=== PATIENT | female | born 2000 | race Caucasian/White ===

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

== ENCOUNTER 2018-05-13 18:08 | Emergency (ER) | payer BC ==
[2018-05-13] MEDS ORDERED: D10W 500 ML IV ONE (18:15)
--- NOTE | 2018-05-13 18:20 | EDPHY ---
H & P Stated Complaint: head hematoma, sz, low BLG Time Seen by Provider: 05/13/18 18:17 HPI/ROS: HPI: This is a 17-year-old female who presents with Chief Complaint: Hypoglycemia, seizure like activity Location: body Quality: Hypoglycemia Duration: Prior to arrival Signs and Symptoms: no fever, no nausea, no vomiting, no photophobia, no noise sensitivity, no neck stiffness, no ear pain, no tinnitus, no nasal congestion, no sinus pressure, no weakness, no radiation, no aura Timing: Acute Severity: [id number] Context: Patient has a history type 1 insulin-dependent diabetes mellitus, takes Lantus and Humalog, arrives via EMS with complaints of witnessed syncopal episode in the alley way between the apartment building. Patient was caring her laundry across the street. She reports that last thing she remembers is feeling lightheaded and dizzy in the alley way. She also noted that laundry basket was extremely heavy and she was exerting"a lot of energy." Patient reports that she has not ate or drank anything today but did take her Lantus this morning. Patient reports that the last time she had a hypoglycemic episode was when she did eat or drink anything approximately 1 year ago. Denies tongue laceration, incontinence, fever, vomiting. She does report some pain over the area of the hematoma where she hit her head on the asphalt. She also has some nausea. Prior history of 1 concussion that was mild in nature per patient in the past. No prior history of seizure activity. Bystanders now at bedside reports that she did not have seizure like activity. They report" she just fainted." Denies any recent alcohol or drug use. Reports tetanus is current. EMS reports that fingerstick upon arrival was 43. Modifying Factors: EMS gave patient oral glucose and 10% dextrose Comment: ROS: A comprehensive 10 system review of systems is otherwise negative aside from elements mentioned in the history of present illness. MEDICAL/SURGICAL/SOCIAL HISTORY: Medical history: Type 1 insulin-dependent diabetes mellitus, attention deficit hyperactivity disorder. Last menstrual period was 1-7 days ago. Takes oral control pills. Surgical history: Denies Social history: Student at [employer]. Originally from [place]. Family history noncontributory. CONSTITUTIONAL: awake and alert polite and cooperative teenage white female, no obvious distress HEENT: 2 in annular hematoma on the left occipital area noted-no active bleeding, and normocephalic, PERRL, EOMI. Nares patent; no rhinorrhea; no nasal mucosal edema. Tympanic membranes clear. Oropharynx clear, no exudate and moist pink mucosa. Airway patent. No lymphadenopathy. NECK: supple, no midline tenderness, flexion 45 degrees, extension 45 degrees, right and left lateral flexion 45 degrees. No meningismus. Cardiovascular: Normal S1/S2, regular rate, regular rhythm, without murmur rub or gallop. PULMONARY/CHEST: Symmetrical and nontender. Clear to auscultation bilaterally. Good air movement. No accessory muscle usage. ABDOMEN: Soft, nondistended, nontender, no rebound, no guarding, no peritoneal signs, no masses or organomegaly. No CVAT. EXTREMITIES: 2/2 pulses, strength 5/5, no deformities, no clubbing, no cyanosis or edema. NEUROLOGICAL: no focal neuro deficits. GCS 15. SKIN: Warm and dry, no erythema. no rash. Good capillary refill. Source: Patient, Family, EMS Exam Limitations: No limitations - Personal History LMP (Females 10-55): 1-7 Days Ago Current Tetanus/Diphtheria Vaccine: Yes Current Tetanus Diphtheria and Acellular Pertussis (TDAP): Yes - Medical/Surgical History Hx Asthma: No Hx Chronic Respiratory Disease: No Hx Diabetes: Yes Hx Cardiac Disease: No Hx Renal Disease: No Hx Cirrhosis: No Hx Alcoholism: No Hx HIV/AIDS: No Hx Splenectomy or Spleen Trauma: No Other PMH: Type 1 diabetes, ADHD. - Social History Smoking Status: Never smoked Constitutional: Initial Vital Signs Temperature (C) 36.8 C 05/13/18 18:11 Heart Rate 115 H 05/13/18 18:11 Respiratory Rate 18 05/13/18 18:11 Blood Pressure 126/66 H 05/13/18 18:11 O2 Sat (%) 97 05/13/18 18:11 O2 Delivery Mode Room Air Allergies/Adverse Reactions: No Known Allergies Allergy (Unverified 11/11/17 14:42) Home Medications: Medication Instructions Recorded Adderall 10 MG (*) 08/05/17 Lantus 100 UNITS/ML (*) 08/05/17 Xanax 08/05/17 Humalog 11/11/17 Medical Decision Making ED Course/Re-evaluation: Vital signs reviewed and show mild tachycardia. Removed from cervical collar as no midline tenderness and no indication for cervical CT scanning based on nexus protocol. Patient has no neurological deficits. She has politely declined head CT imaging which I feels appropriate. Patient is alert and oriented x4 and competent to make this decision. 1815: BGL 55 Local anesthesia of 1% lidocaine with epinephrine 3 mL was placed. Scalp has hematoma and no laceration to indicate sutures or ayla. Cleaned and copiously irrigated. Bacitracin applied. laboratory studies drawn and 500 mL of D10 IV fluids given 1914: FSBS 170. Patient has trying to orange juices and is eating food that friends have brought to her. Labs reviewed and show mild leukocytosis and low normal CO2 level most likely due to dehydration and reactive. 2015: FSBS 141 Patient is safe to be discharged home. Blood sugar is stable patient is well- versed and hypoglycemic episodes, blood sugar monitoring, insulin pump usage. No signs of coma/sepsis/delirium/seizures. Vital signs stable at discharge. Tachycardia resolved. This patient was seen under the supervision of my secondary supervising physician. I evaluated care for this patient independently. Discussed this patient with Dr. Vazquez. Differential Diagnosis: Seizure including but not limited to electrolyte abnormality, alcohol withdrawal , medication noncompliance, head injury, and breakthrough seizure. - Data Points Laboratory Results: Laboratory Results 05/13/18 18:25 05/13/18 18:25 05/13/18 05/13/18 05/13/18 20:18 18:25 18:25 WBC RBC Hgb Hct MCV MCH MCHC RDW Plt Count MPV Neut % (Auto) Lymph % (Auto) Jack % (Auto) Eos % (Auto) Baso % (Auto) Nucleat RBC Rel Count Absolute Neuts (auto) Absolute Lymphs (auto) Absolute Monos (auto) Absolute Eos (auto) Absolute Basos (auto) Absolute Nucleated RBC Immature Gran % Immature Gran # Sodium 137 mEq/L mEq/L (135-145) Potassium 3.9 mEq/L mEq/L (3.3-5.0) Chloride 106 mEq/L mEq/L (97-110) Carbon Dioxide 20 mEq/l L mEq/l (22-31) Anion Gap 11 mEq/L mEq/L (8-16) BUN 13 mg/dL mg/dL (7-23) Creatinine 0.6 mg/dL mg/dL (0.6-1.0) Estimated GFR > 60 Glucose 43 mg/dL L mg/dL (70-100) POC Glucose 141 mg/dL H mg/dL (70-100) Calcium 9.2 mg/dL mg/dL (8.5-10.4) Beta HCG, Qual NEGATIVE 05/13/18 05/13/18 18:25 18:18 WBC 12.94 10^3/uL H 10^3/uL (3.80-9.50) RBC 4.43 10^6/uL 10^6/uL (4.18-5.33) Hgb 13.7 g/dL g/dL (12.6-16.3) Hct 40.0 % % (38.0-47.0) MCV 90.3 fL fL (81.5-99.8) MCH 30.9 pg pg (27.9-34.1) MCHC 34.3 g/dL g/dL (32.4-36.7) RDW 12.9 % % (11.5-15.2) Plt Count 293 10^3/uL 10^3/uL (150-400) MPV 9.4 fL fL (8.7-11.7) Neut % (Auto) 63.0 % % (39.3-74.2) Lymph % (Auto) 27.7 % % (15.0-45.0) Jack % (Auto) 6.4 % % (4.5-13.0) Eos % (Auto) 1.0 % % (0.6-7.6) Baso % (Auto) 0.6 % % (0.3-1.7) Nucleat RBC Rel Count 0.0 % % (0.0-0.2) Absolute Neuts (auto) 8.15 10^3/uL H 10^3/uL (1.70-6.50) Absolute Lymphs (auto) 3.58 10^3/uL H 10^3/uL (1.00-3.00) Absolute Monos (auto) 0.83 10^3/uL H 10^3/uL (0.30-0.80) Absolute Eos (auto) 0.13 10^3/uL 10^3/uL (0.03-0.40) Absolute Basos (auto) 0.08 10^3/uL 10^3/uL (0.02-0.10) Absolute Nucleated RBC 0.00 10^3/uL 10^3/uL (0-0.01) Immature Gran % 1.3 % H % (0.0-1.1) Immature Gran # 0.17 10^3/uL H 10^3/uL (0.00-0.10) Sodium Potassium Chloride Carbon Dioxide Anion Gap BUN Creatinine Estimated GFR Glucose POC Glucose 55 mg/dL L mg/dL (70-100) Calcium Beta HCG, Qual Medications Given: Discontinued Medications Dextrose (D10w) 500 mls @ 0 mls/hr IV CONT ONE; Per Protocol PRN Reason: Protocol Stop: 05/13/18 18:16 Last Admin: 05/13/18 18:38 Dose: 500 mls Point of Care Test Results: Chemistry 05/13/18 05/13/18 20:18 18:18 POC Glucose 141 mg/dL H mg/dL 55 mg/dL L mg/dL (70-100) (70-100) Departure - Departure Disposition: Home, Routine, Self-Care Clinical Impression: Hypoglycemia due to type 1 diabetes mellitus Hematoma of scalp Qualifiers: Encounter type: initial encounter Qualified Code(s): S00.03XA - Contusion of scalp, initial encounter Head injury without skull fracture Qualifiers: Encounter type: initial encounter Qualified Code(s): S09.90XA - Unspecified injury of head, initial encounter Condition: Good Instructions: Hypoglycemia in a Person with Diabetes (ED), Concussion (ED), Head Injury (ED), Hematoma (ED) Additional Instructions: Consume a minimum of 8-10 glasses of water or electrolyte fluid replacement drinks that include Gatorade, Powerade, Pedialyte. Eat meals regularly and closely monitor blood sugar to prevent future hypoglycemic episodes. You sustained a closed head injury and it is recommended that you observe concussion precautions. Wash scalp abrasion daily with mild soap and water; then pat dry and apply over- the-counter antibiotic ointment daily until fully healed. Take Tylenol 650 mg every 4 hours and/or Ibuprofen 600 mg every 8 hours with food as needed for pain/headache. Follow-up with [facility] in the next 1-3 days. If concussion symptoms occur follow-up with Dr. Olivares in the concussion Clinic. Return to the ER immediately if you have progressive headaches, neurologic deficits, gait abnormality, visual disturbance, slurred speech, or any other symptom that concerns you. Referrals: [facility],. [Clinic] - 1-2 days without fail Paulina Olivares MD [Medical Doctor] - As per Instructions Stand Alone Forms: School Excuse
[2018-05-13 18:44] LABS: PLATELET COUNT 293 10^3/uL (150-400)
[2018-05-13 20:40] VITALS: BP 117/72
== END 2018-05-13 20:37 | disposition home or self-care (01) ==
LOC: EDUNIT#
DX: E10.649 Type 1 diabetes mellitus with hypoglycemia without coma (principal); S00.03XA Contusion of scalp, initial encounter; X58.XXXA Exposure to other specified factors, initial encounter
CPT/HCPCS: 96374

== ENCOUNTER 2018-09-20 03:25 | Emergency (ER) | payer BC ==
--- NOTE | 2018-09-20 03:28 | EDPHY ---
H & P Source: Patient - Medical/Surgical History Hx Asthma: No Hx Chronic Respiratory Disease: No Hx Diabetes: Yes Hx Cardiac Disease: No Hx Renal Disease: No Hx Cirrhosis: No Hx Alcoholism: No Hx HIV/AIDS: No Hx Splenectomy or Spleen Trauma: No Other PMH: Type 1 diabetes, ADHD. - Social History Smoking Status: Never smoked Time Seen by Provider: 09/20/18 03:28 HPI/ROS: HPI CHIEF COMPLAINT: Possible low blood sugar. Alcohol intoxication HISTORY OF PRESENT ILLNESS: 17-year-old female presents emergency room for possible low blood sugar. Patient is and insulin-dependent diabetic type 1, also has attention deficit hyperactivity disorder, she has been seen in the emergency room previously for hypoglycemia with seizure. She presents to the emergency room by private vehicle with her 2 friends. Report that they took her blood sugar was in the 50s. They became concerned and brought her to the emergency room. Patient reports she drank alcohol this evening. She states that she had a donut and ate mac and cheese earlier. However friends report that she did not eat much tonight. She has been drinking alcohol. She arrives to the emergency room and appears intoxicated alcohol, smells of alcohol. Fingerstick glucose upon arrival 58. Food and OJ provided. Patient reports she takes sliding scale during the day, additionally takes long- acting insulin at night. 0349: Patient reports to me that she did drink alcohol this evening, had a large amount to drink, she states she did not really eat much she had a doughnut around 6:00 p.m.. She reports that she takes 30 units of her long- acting insulin in the morning. Takes sliding scale during the day. She tells me that she does calorie counts. Went to go confirm the patient's insulin regimen with her, however now she tells me completely different insulin regimen than when she got here. I believe she is too intoxicated with alcohol to get an accurate insulin regimen out of her at this time. She will need to sober will watch her blood sugars closely. Past Medical History: Insulin-dependent diabetes. Past Surgical History: No recent surgical history Social History: Alcohol this evening. Family History: Noncontributory ROS REVIEW OF SYSTEMS: 10 Systems were reviewed and negative with the exception of the elements mentioned in the history of present illness. Exam Constitutional intoxicated, smells of alcohol, triage nursing summary reviewed , vital signs reviewed, awake/alert. Vital signs stable, blood glucose upon arrival 58 Eyes normal conjunctivae and sclera, EOMI, PERRLA. HENT normal inspection, atraumatic, moist mucus membranes, no epistaxis, neck supple/ no meningismus, no raccoon eyes. Respiratory clear to auscultation bilaterally, normal breath sounds, no respiratory distress, no wheezing. Cardiovascular rate normal, regular rhythm, no murmur, no edema, distal pulses normal. Gastrointestinal soft, non-tender, no rebound, no guarding, normal bowel sounds, no distension, no pulsatile mass. Genitourinary no CVA tenderness. Musculoskeletal no midline vertebral tenderness, full range of motion, no calf swelling, no tenderness of extremities, no meningismus, good pulses, neurovascularly intact. Skin pink, warm, & dry, no rash, skin atraumatic. Neurologic awake, alert and oriented x 3, AAOx3, moves all 4 extremities equally, motor intact, sensory intact, CN II-XII intact, normal cerebellar, normal vision, slurring speech, intoxicated Psychiatric normal mood/affect. Heme/Lymph/Immune no lymphadenopathy. Differential Diagnosis: Includes but is not limited to in a particular order: Insulin-dependent diabetes, insulin overdose, alcohol intoxication, hypoglycemia , hyperglycemia from not eating and drinking only alcohol. Medical Decision Making: Plan for this patient IV establishment IV fluid bolus , point of care fingerstick glucose, monitor, electrolytes, monitor closely for serial glucose. Re-evaluation: 0335: Initial fingerstick glucose 58. Bridger juice and food provided. Will continue to watch blood glucose closely. 0356: Will need to closely monitor her blood sugar Q 1 hr. The need to maintain her blood sugar multiple times for discharge. She will also need to sober up from her acute alcohol intoxication Serum alcohol level 320 at 4:26 a.m. 0431: Blood sugar 109. Will continue to close monitor. Patient is highly intoxicated here in emergency room with serum alcohol 320. This may be contributing to her hypoglycemia as she did not eat much. 2nd blood sugar 109 will continue monitor closely. 0530: Blood sugar 174. Patient still very intoxicated. Sobering. 0640AM: Patient continues to sober. Will re-check BS. Will need to further Sober. 6:30 a.m. blood sugar 178. These have been stable.. Patient still sobering from alcohol Signed over to Dr. Sky, 7am, once patient is sober she can be safely discharged. (Jason Shaw) Constitutional: Initial Vital Signs Temperature (C) 36.4 C 09/20/18 03:36 Heart Rate 102 H 09/20/18 03:36 Respiratory Rate 16 09/20/18 03:36 Blood Pressure 111/74 09/20/18 03:36 O2 Sat (%) 95 09/20/18 03:36 O2 Delivery Mode Room Air Allergies/Adverse Reactions: No Known Allergies Allergy (Verified 09/20/18 03:39) Home Medications: Medication Instructions Recorded Adderall 10 MG (*) 08/05/17 Lantus 100 UNITS/ML (*) 08/05/17 Xanax 08/05/17 Humalog 11/11/17 Medical Decision Making Other Provider: Care assumed at 7:10 a.m., this patient arrived because her friends are worried about hypoglycemia. She had a blood sugar of 58 and alcohol greater than 300. She has had food and her glucose is stabilized. Plan to observe with serial clinical examinations until no longer intoxicated. 736: Patient is up ambulatory. She has clear sensorium and fluent speech at this time. She is not ataxic. She is here with a friend and they would like to take an Uber home which I think is reasonable. She did not have any changes in her diabetes management last night, her alcohol intake last night is most likely explanation for her relative hypoglycemia. Patient states she is under the care of a primary care physician in [facility] where her parents live. She says she uses insulin injections and has adequate medication supplies at home to manage her diabetes on discharge. She would like to go home which I think is reasonable. (Ajay Sky) - Data Points Laboratory Results: Laboratory Results 09/20/18 03:37 09/20/18 03:37 09/20/18 09/20/18 09/20/18 06:36 05:30 05:29 WBC RBC Hgb POC Hgb 12.6 gm/dL gm/dL 12.6 gm/dL gm/dL (12.6-16.3) (12.6-16.3) Hct POC Hct 37 % L % 37 % L % (38-47) (38-47) MCV MCH MCHC RDW Plt Count MPV Neut % (Auto) Lymph % (Auto) [place] % (Auto) Eos % (Auto) Baso % (Auto) Nucleat RBC Rel Count Absolute Neuts (auto) Absolute Lymphs (auto) Absolute Monos (auto) Absolute Eos (auto) Absolute Basos (auto) Absolute Nucleated RBC Immature Gran % Immature Gran # POC Sodium 144 mEq/L mEq/L 142 mEq/L mEq/L (135-145) (135-145) Sodium POC Potassium 3.5 mEq/L mEq/L 3.6 mEq/L mEq/L (3.3-5.0) (3.3-5.0) Potassium POC Chloride 107 mEq/L mEq/L 106 mEq/L mEq/L (97-110) (97-110) Chloride Carbon Dioxide Anion Gap POC BUN < 3 mg/dL L mg/dL 3 mg/dL L mg/dL (7-23) (7-23) BUN Creatinine POC Creatinine 0.7 mg/dL mg/dL 0.6 mg/dL mg/dL (0.6-1.0) (0.6-1.0) Estimated GFR Glucose POC Glucose 178 mg/dL H mg/dL 174 mg/dL H mg/dL (70-100) (70-100) Calcium Beta HCG, Qual Urine Opiates Screen NEGATIVE (NEGATIVE) Urine Barbiturates NEGATIVE (NEGATIVE) Ur Phencyclidine Scrn NEGATIVE (NEGATIVE) Ur Amphetamine Screen NEGATIVE (NEGATIVE) U Benzodiazepines Scrn NEGATIVE (NEGATIVE) Urine Cocaine Screen NEGATIVE (NEGATIVE) U Marijuana (THC) Screen NON-NEGATIVE H (NEGATIVE) Ethyl Alcohol 09/20/18 09/20/18 09/20/18 04:30 03:37 03:37 WBC RBC Hgb POC Hgb 15.3 gm/dL gm/dL 15.6 gm/dL gm/dL (12.6-16.3) (12.6-16.3) Hct POC Hct 45 % % 46 % % (38-47) (38-47) MCV MCH MCHC RDW Plt Count MPV Neut % (Auto) Lymph % (Auto) [place] % (Auto) Eos % (Auto) Baso % (Auto) Nucleat RBC Rel Count Absolute Neuts (auto) Absolute Lymphs (auto) Absolute Monos (auto) Absolute Eos (auto) Absolute Basos (auto) Absolute Nucleated RBC Immature Gran % Immature Gran # POC Sodium 144 mEq/L mEq/L 141 mEq/L mEq/L (135-145) (135-145) Sodium POC Potassium 3.5 mEq/L mEq/L 4.0 mEq/L mEq/L (3.3-5.0) (3.3-5.0) Potassium POC Chloride 105 mEq/L mEq/L 103 mEq/L mEq/L (97-110) (97-110) Chloride Carbon Dioxide Anion Gap POC BUN 4 mg/dL L mg/dL 5 mg/dL L mg/dL (7-23) (7-23) BUN Creatinine POC Creatinine 0.8 mg/dL mg/dL 0.9 mg/dL mg/dL (0.6-1.0) (0.6-1.0) Estimated GFR Glucose POC Glucose 109 mg/dL H mg/dL 58 mg/dL L mg/dL (70-100) (70-100) Calcium Beta HCG, Qual NEGATIVE Urine Opiates Screen Urine Barbiturates Ur Phencyclidine Scrn Ur Amphetamine Screen U Benzodiazepines Scrn Urine Cocaine Screen U Marijuana (THC) Screen Ethyl Alcohol 09/20/18 09/20/18 03:37 03:37 WBC 10.53 10^3/uL H 10^3/uL (3.80-9.50) RBC 4.80 10^6/uL 10^6/uL (4.18-5.33) Hgb 14.8 g/dL g/dL (12.6-16.3) POC Hgb Hct 44.9 % % (38.0-47.0) POC Hct MCV 93.5 fL fL (81.5-99.8) MCH 30.8 pg pg (27.9-34.1) MCHC 33.0 g/dL g/dL (32.4-36.7) RDW 13.2 % % (11.5-15.2) Plt Count 361 10^3/uL 10^3/uL (150-400) MPV 8.9 fL fL (8.7-11.7) Neut % (Auto) 63.3 % % (39.3-74.2) Lymph % (Auto) 28.0 % % (15.0-45.0) [place] % (Auto) 5.7 % % (4.5-13.0) Eos % (Auto) 0.8 % % (0.6-7.6) Baso % (Auto) 0.7 % % (0.3-1.7) Nucleat RBC Rel Count 0.0 % % (0.0-0.2) Absolute Neuts (auto) 6.67 10^3/uL H 10^3/uL (1.70-6.50) Absolute Lymphs (auto) 2.95 10^3/uL 10^3/uL (1.00-3.00) Absolute Monos (auto) 0.60 10^3/uL 10^3/uL (0.30-0.80) Absolute Eos (auto) 0.08 10^3/uL 10^3/uL (0.03-0.40) Absolute Basos (auto) 0.07 10^3/uL 10^3/uL (0.02-0.10) Absolute Nucleated RBC 0.00 10^3/uL 10^3/uL (0-0.01) Immature Gran % 1.5 % H % (0.0-1.1) Immature Gran # 0.16 10^3/uL H 10^3/uL (0.00-0.10) POC Sodium Sodium 140 mEq/L mEq/L (135-145) POC Potassium Potassium 4.3 mEq/L mEq/L (3.5-5.2) POC Chloride Chloride 106 mEq/L mEq/L (97-110) Carbon Dioxide 23 mEq/l mEq/l (22-31) Anion Gap 11 mEq/L mEq/L (6-14) POC BUN BUN 7 mg/dL mg/dL (7-23) Creatinine 0.6 mg/dL mg/dL (0.6-1.0) POC Creatinine Estimated GFR > 60 Glucose 55 mg/dL L mg/dL (70-100) POC Glucose Calcium 9.1 mg/dL mg/dL (8.5-10.4) Beta HCG, Qual Urine Opiates Screen Urine Barbiturates Ur Phencyclidine Scrn Ur Amphetamine Screen U Benzodiazepines Scrn Urine Cocaine Screen U Marijuana (THC) Screen Ethyl Alcohol 320 mg/dL H mg/dL (0-10) Medications Given: Discontinued Medications Sodium Chloride (Ns) 1,000 mls @ 0 mls/hr IV EDNOW ONE; Wide Open PRN Reason: Protocol Stop: 09/20/18 03:35 Last Admin: 09/20/18 03:38 Dose: 1,000 mls Point of Care Test Results: Chemistry 09/20/18 09/20/18 09/20/18 06:36 05:29 04:30 POC Sodium 144 mEq/L mEq/L 142 mEq/L mEq/L 144 mEq/L mEq/L (135-145) (135-145) (135-145) POC Potassium 3.5 mEq/L mEq/L 3.6 mEq/L mEq/L 3.5 mEq/L mEq/L (3.3-5.0) (3.3-5.0) (3.3-5.0) POC Chloride 107 mEq/L mEq/L 106 mEq/L mEq/L 105 mEq/L mEq/L (97-110) (97-110) (97-110) POC BUN < 3 mg/dL L mg/dL 3 mg/dL L mg/dL 4 mg/dL L mg/dL (7-23) (7-23) (7-23) POC Creatinine 0.7 mg/dL mg/dL 0.6 mg/dL mg/dL 0.8 mg/dL mg/dL (0.6-1.0) (0.6-1.0) (0.6-1.0) POC Glucose 178 mg/dL H mg/dL 174 mg/dL H mg/dL 109 mg/dL H mg/dL (70-100) (70-100) (70-100) 09/20/18 03:37 POC Sodium 141 mEq/L mEq/L (135-145) POC Potassium 4.0 mEq/L mEq/L (3.3-5.0) POC Chloride 103 mEq/L mEq/L (97-110) POC BUN 5 mg/dL L mg/dL (7-23) POC Creatinine 0.9 mg/dL mg/dL (0.6-1.0) POC Glucose 58 mg/dL L mg/dL (70-100) ISTAT H&H 09/20/18 09/20/18 09/20/18 06:36 05:29 04:30 POC Hgb 12.6 gm/dL gm/dL 12.6 gm/dL gm/dL 15.3 gm/dL gm/dL (12.6-16.3) (12.6-16.3) (12.6-16.3) POC Hct 37 % L % 37 % L % 45 % % (38-47) (38-47) (38-47) 09/20/18 03:37 POC Hgb 15.6 gm/dL gm/dL (12.6-16.3) POC Hct 46 % % (38-47) Departure - Departure Disposition: Home, Routine, Self-Care Clinical Impression: Hypoglycemia Alcohol intoxication Qualifiers: Complication of substance-induced condition: uncomplicated Qualified Code(s): F10.920 - Alcohol use, unspecified with intoxication, uncomplicated Condition: Good Instructions: Hypoglycemia in a Person with Diabetes (ED), Alcohol Intoxication (ED) Referrals: ROB Davis,. [Clinic] - As per Instructions
[2018-09-20] MEDS ORDERED: NS 1,000 ML IV ONE (03:34)
[2018-09-20 03:45] LABS: PLATELET COUNT 361 10^3/uL (150-400)
[2018-09-20 07:45] VITALS: BP 99/57
== END 2018-09-20 07:43 | disposition home or self-care (01) ==
DX: E11.649 Type 2 diabetes mellitus with hypoglycemia without coma (principal); F10.920 Alcohol use, unspecified with intoxication, uncomplicated; E86.9 Volume depletion, unspecified
CPT/HCPCS: 80305; 82435-PO; 82565-PO; 82947-PO; 84132-PO; 84295-PO; 84520-PO; 85014-ER; G0480